=== PATIENT | male | born 1985 | race Caucasian/White ===

== ENCOUNTER → 2021-04-30 09:12 | Outpatient (CLI) | payer OTHER, SELFPAY ==
[2021-04-30 09:38] LABS: Basophils # 0.1 K/mm3 (0-0.2); Basophils % 0.8 % (0.1-2.0); Eosinophils # 0.1 K/mm3 (0.0-0.4); Eosinophils % 1.1 % (0.1-12.0); Hematocrit 53.3 % (42.0-52.0); Hemoglobin 17.8 g/dL (14.1-18.0); Lymphocytes # 1.8 K/mm3 (0.7-4.5); Mean Corpuscular HGB Conc 33.3 g/dL (31.8-35.4); Mean Corpuscular Hemoglobin 31.5 pg (27.0-31.2); Mean Corpuscular Volume 94.6 fl (80-94); Mean Platelet Volume 8.5 fl (7.4-10.4); Monocytes # 0.4 K/mm3 (0.1-1.0); Monocytes % 5.8 % (1.7-9.3); Neutrophils # 4.4 K/mm3 (1.8-7.8); Neutrophils % 65.2 % (37.0-80.0); Platelet Count 250 K/mm3 (142-424); Red Blood Count 5.63 M/mm3 (4.60-6.20); White Blood Count 6.7 K/mm3 (4.8-10.8)
[2021-04-30 11:02] LABS: Chloride 102 mmol/L (98-107); Potassium 4.4 mmoL/L (3.5-5.1); Sodium 141 mmol/L (136-145)
[2021-04-30 11:04] LABS: Bilirubin,Unconjugated 0.8 mg/dL (0.0-1.1); Blood Urea Nitrogen 16 mg/dl (9-20); Estimated Glomerular Filt Rate 97 ml/min (>60); GFR (African American) 117 ML/MIN (>60)
[2021-04-30 11:05] LABS: Alanine Aminotransferase 43 U/L (12-78); Albumin Level 4.5 g/dl (3.5-5.0); Alkaline Phosphatase 65 U/L (38-126); Anion Gap 12.4 mEq/L (5-15); Aspartate Amino Transferase 35 U/L (17-59); Bilirubin,Direct 0.2 mg/dl (0.0-0.4); Bilirubin,Indirect 0.8 mg/dL (0.0-0.9); Calcium 9.5 mg/dl (8.4-10.2); Carbon Dioxide 31 mmol/L (22.0-30.0); Chol/HDL Ratio 4.2 (1-3.5); Cholesterol 208 mg/dl (140-200); Glucose 103 mg/dl (74-100); HDL Cholesterol 49 mg/dl (40-60); Total Protein,Serum 7.6 g/dl (6.3-8.2); Triglycerides 189 mg/dl (30-150); VLDL Cholesterol 38 mg/dL (0-40)
[2021-04-30 11:09] LABS: Free T4 (Free Thyroxine) 0.95 ng/dl (0.78-2.19)
[2021-04-30 11:17] LABS: Direct LDL Cholesterol 130.32 mg/dL (100-129)
[2021-04-30 11:35] LABS: Thyroid Stimulating Hormone 1.66 uIU/mL (0.465-4.68)
== END ==
PROVIDERS: Visit Provider Nurse Practitioner Family
DX: R07.9 Chest pain, unspecified (principal); R06.00 Dyspnea, unspecified; I10 Essential (primary) hypertension; R94.31 Abnormal electrocardiogram [ECG] [EKG]; R06.83 Snoring; R40.0 Somnolence
CPT/HCPCS: 36415; 80048; 80061; 80076; 84439; 84443; 85025

== ENCOUNTER → 2021-05-20 06:49 | Outpatient (CLI) | payer SELFPAY ==
--- NOTE | 2021-05-20 06:50 | CT_ITS ---
PROCEDURE: CT HEART W CALCIUM SCORE CLINICAL HISTORY: chest pain/dyspnea COMPARISON: No exams were available for comparison TECHNIQUE: Axial images obtained with sagittal and coronal reformats. All CT scans at the facility use one or more dose reduction, viz: automated exposure control, ma/kV adjustment per patient size (including targeted exams where dose is matched to indication, i.e. head), or iterative reconstruction technique. FINDINGS: Total coronary artery calcium score is 0. No identifiable calcific atherosclerotic plaque with very low cardiovascular disease risk. IMPRESSION: No identifiable calcific atherosclerotic plaque with very low cardiovascular disease risk Dictated by: Dimitris Diez MD 05/25/2021 07:35 Dimitris Diez MD in [place] 05/25/2021 07:35
== END ==
PROVIDERS: PCP Family Medicine; Visit Provider Nurse Practitioner Family
DX: R06.00 Dyspnea, unspecified (principal); R07.9 Chest pain, unspecified; I10 Essential (primary) hypertension; Z13.6 Encounter for screening for cardiovascular disorders
CPT/HCPCS: 75571

== ENCOUNTER → 2021-05-20 07:23 | Outpatient (CLI) | payer OTHER, SELFPAY ==
--- NOTE | 2021-05-20 07:24 | CA_ITS ---
APPROVED REPORT Exam: Exercise Treadmill Technologist: Libertad Henao, Ht: 5 ft 9 in Wt: 247 lbs BSA: 2.26 m2 HR: 77 bpm BP: 143/79 mmHg Medical History Medications: Lisinopril,,,,, Omeprazole,,,,, HCTZ,,,,, BisOPROLOL Fumarate,,,,, TAdalafil,,,,, Stress Test Details Test: Manual Treadmill HR Resting HR: 86 bpm Max Heart Rate (APMHR): 186.368688 bpm Max HR Achieved: 161 bpm Target HR (85% APMHR): 158.564650 bpm % of APMHR: 86.56 Recovery HR: 102 bpm BP Resting BP: 130/76 mmHg Max BP: 165/85 mmHg Recovery BP: 153.0/57.0 mmHg ECG Resting ECG: NSR, ST-T abns in leads III and aVF Clinical Exercise duration: 10:07 min Highest Stage Achieved: Exercise capacity: 12.8 METs Stress ECG Conclusion Exercised 10:07 on Mian Protocol Max HR: 161 % of PM: 87% Max BP: 165/85 METs: 12.8 Test stopped due to: SOA, fatigue Symptoms: Dull CP under L breast. Tingling in L hand and forearm. Arrhythmias/Ectopy: None. ST-T Changes: Excluding leads III and AVF with the baseline abns, the ST response to exercise is within normal limits. Conclusion: Atypical CP. Normal stress EKGs with decreased sensitivity due to baseline abns. GXT only (no imaging). Test Summary REST . . . . . . . Sitting REST . . . . . . . Standing REST 04:41 0.0 0.0 86 . 130/ 76 . . Stage 1 01:00 10.0 1.7 105 . . . . Stage 1 02:00 10.0 1.7 112 . . . . Stage 1 03:00 10.0 1.7 112 . 140/ 75 . . Stage 2 01:00 12.0 2.5 116 . . . . Stage 2 02:00 12.0 2.5 124 . . . . Stage 2 03:00 12.0 2.5 127 . 146/ 78 . . Stage 3 01:00 14.0 3.4 132 . . . . Stage 3 02:00 14.0 3.4 138 . . . . Stage 3 03:00 14.0 3.4 140 . 165/ 85 . . Stage 4 01:00 16.0 4.2 160 . . . . Stage 4 01:07 0.0 0.0 161 . . . Stop exercise at 10:07 RECOVERY . . . . . . . Protocol changed to Manual Treadmill RECOVERY 01:00 0.0 0.0 136 . 136/ 64 . . RECOVERY 02:00 0.0 0.0 117 . 154/ 76 . . RECOVERY 03:00 0.0 0.0 105 . 154/ 76 . . RECOVERY 04:00 0.0 0.0 104 . 152/ 67 . . RECOVERY 05:00 0.0 0.0 101 . 153/ 57 . . RECOVERY 05:24 0.0 0.0 105 . 153/ 57 . . Electronically signed by : Iam Gaona MD 05/20/2021 13:54:25
== END ==
PROVIDERS: PCP Family Medicine; Referring Provider Nurse Practitioner Family; Visit Provider Nurse Practitioner Family
DX: R06.00 Dyspnea, unspecified (principal); R07.9 Chest pain, unspecified; I10 Essential (primary) hypertension
CPT/HCPCS: 93017; 93306